=== PATIENT | male | born 1955 | race Caucasian/White ===

== ENCOUNTER 2017-06-06 10:04 | Inpatient (IN) | payer OTHER ==
[~2017-06-06] VITALS: Ht 190.5 cm; Wt 93.8 kg
[2017-06-06] VITALS (11 sets, daily range): BP systolic 139–163; BP diastolic 73–90; PULSE 68–78; RESP 14–20; TEMP 97.8–98.6; O2SAT 96–99
[2017-06-06] MEDS ORDERED: AMBI10TA PO (10:23)
[2017-06-06] MEDS ORDERED: HYDR-3533 PO (10:23)
[2017-06-06] MEDS ORDERED: ENAL10TA PO (10:23)
[2017-06-06] MEDS ORDERED: XANA1TAB2 PO (10:23)
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
[2017-06-06] MEDS ORDERED: MORPHINE SULFATE 4 MG/ML INJ IV PUSH ONE (13:45)
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
[2017-06-06] MEDS ORDERED: NALOXONE HCL 0.4 MG/ML AMP IV PRN (15:45)
[2017-06-06] MEDS ORDERED: LABETALOL HCL 100 MG/20 ML VIAL IV PRN (15:45)
[2017-06-06] MEDS ORDERED: ONDANSETRON HCL 4 MG/2 ML VIAL IV PRN (15:45)
[2017-06-06] MEDS ORDERED: HYDROmorphone HCL PF 1 MG/ML VIAL IV PRN (15:45)
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
[2017-06-06] MEDS: ACETAMINOPHEN/HYDROcodone 325 MG/5 MG TAB PO PRN ×2 (16:42→21:01)
[2017-06-06] MEDS: DOCUSATE SODIUM 100 MG CAP PO SCH ×2 (21:00→21:01)
[2017-06-07] VITALS (12 sets, daily range): BP systolic 104–150; BP diastolic 60–79; PULSE 68–75; RESP 11–16; TEMP 97.7–98.7; O2SAT 96–100
[2017-06-07] MEDS: ACETAMINOPHEN/HYDROcodone 325 MG/5 MG TAB PO PRN ×5 (00:17→20:20)
[2017-06-07 04:21] LABS: AUTOMATED NEUTROPHIL # 3.2 TH/MM3 (1.8-7.7); BASOPHIL % 0.7 % (0.0-2.0); EOSINOPHIL # 0.2 TH/MM3 (0-0.4); EOSINOPHIL % 3.5 % (0.0-4.0); HEMATOCRIT 39.2 % (39.0-51.0); HEMO FLAGS DIFF FINAL; LYMPH % 32.5 % (9.0-44.0); LYMPHOCYTE # 1.9 TH/MM3 (1.0-4.8); MEAN CELL VOLUME 89.7 FL (80.0-100.0); MEAN CORPUSCULAR HEMOGLOBIN 29.5 PG (27.0-34.0); MEAN CORPUSCULAR HGB CONC 32.8 % (32.0-36.0); MONO % 7.2 % (0.0-8.0); NEUT % 56.1 % (16.0-70.0); PLATELET COUNT 133 TH/MM3 (150-450); RED BLOOD COUNT 4.37 MIL/MM3 (4.50-5.90); WHITE BLOOD COUNT 5.8 TH/MM3 (4.0-11.0)
[2017-06-07 04:30] LABS: APTT (PATIENT) 28.2 SEC (24.3-30.1); PROTHROMBIN TIME - PATIENT 10.6 SEC (9.8-11.6)
[2017-06-07 05:01] LABS: BICARBONATE 26.6 MEQ/L (21.0-32.0); POTASSIUM 3.8 MEQ/L (3.5-5.1)
[2017-06-07] MEDS: PANTOPRAZOLE SODIUM 40 MG VIAL IVP SCH (08:20)
[2017-06-07] MEDS: DOCUSATE SODIUM 100 MG CAP PO SCH ×2 (08:20→20:20)
[2017-06-07] MEDS: ENALAPRIL MALEATE 10 MG TAB PO SCH (08:21)
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
--- NOTE | 2017-06-07 13:44 | EKG ---
Date Performed: 06/06/2017 Time Performed: 17:59:58 PTAGE: 62 years EKG: Sinus rhythm with 1st degree A-V block Poor R wave progression - probable normal variant Septal T wave changes ar e nonspecific Abnormal ECG NO PREVIOUS TRACING DOCTOR: Juve Coelho Interpretating Date/Time 06/07/2017 13:43:27
[2017-06-08] VITALS (12 sets, daily range): BP systolic 118–146; BP diastolic 64–77; PULSE 68–92; RESP 12–20; TEMP 97.8–98.6; O2SAT 96–100
[2017-06-08] MEDS: ACETAMINOPHEN/HYDROcodone 325 MG/5 MG TAB PO PRN ×5 (00:27→19:38)
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
[2017-06-08] MEDS: PANTOPRAZOLE SODIUM 40 MG VIAL IVP SCH (09:23)
[2017-06-08] MEDS: DOCUSATE SODIUM 100 MG CAP PO SCH ×2 (09:23→19:38)
[2017-06-08] MEDS: ENALAPRIL MALEATE 10 MG TAB PO SCH (09:24)
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
[2017-06-09] MEDS: ACETAMINOPHEN/HYDROcodone 325 MG/5 MG TAB PO PRN ×3 (00:45→09:35)
[2017-06-09 01:47] VITALS: BP 139/79; PULSE 70; RESP 20; TEMP 96.5; O2SAT 97
[2017-06-09 06:32] VITALS: BP 139/83; PULSE 66; RESP 20; TEMP 97.5; O2SAT 99
[2017-06-09 08:20] VITALS: BP 138/81; PULSE 68; RESP 20; TEMP 96.9; O2SAT 97
[2017-06-09] MEDS: DOCUSATE SODIUM 100 MG CAP PO SCH (09:35)
[2017-06-09] MEDS: ENALAPRIL MALEATE 10 MG TAB PO SCH (09:36)
[2017-06-09] MEDS: PANTOPRAZOLE SODIUM 40 MG VIAL IVP SCH (09:36)
[2017-06-09] MEDS ORDERED: HYDR-3533 PO (11:35)
--- NOTE | 2017-06-09 11:36 | HHI.DCPOC ---
Discharge Care Plan Diagnosis: (1) Subdural hematoma Your Health Problems Are: Difficulty with ADL Exercise Tolerance Goals to Promote Your Health * To prevent worsening of your condition and complications * To maintain your health at the optimal level Directions to Meet Your Goals Take your medications as prescribed Follow your dietary instruction Follow activity as directed Keep your appointments as scheduled Take your immunizations and boosters as scheduled If your symptoms worsen call your PCP, if no PCP go to Urgent Care Center or Emergency Room Smoking is Dangerous to Your Health. Avoid second hand smoke Call the 24-hour hour crisis hotline for domestic abuse at Tobias Vanegas MD Jun 09, 2017 11:36
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
[2017-06-09 12:21] VITALS: BP 139/72; PULSE 78; RESP 20; TEMP 96.9; O2SAT 98
== END 2017-06-09 13:40 | disposition home or self-care (01) | DRG 87 ==
LOC: NEPC 10:04 → NEDA 11:49 → N03B 17:39 → N05A 06-09 00:19
PROVIDERS: ADMIT Neurological Surgery; ATTEND Neurological Surgery
DX: S06.5X0A Traumatic subdural hemorrhage without loss of consciousness, initial encounter (principal); S06.6X0A Traumatic subarachnoid hemorrhage without loss of consciousness, initial encounter; I10 Essential (primary) hypertension; F41.9 Anxiety disorder, unspecified; G89.29 Other chronic pain; M54.2 Cervicalgia; E78.00 Pure hypercholesterolemia, unspecified; S00.11XA Contusion of right eyelid and periocular area, initial encounter; M19.90 Unspecified osteoarthritis, unspecified site; R40.2410 Glasgow coma scale score 13-15, unspecified time; F17.210 Nicotine dependence, cigarettes, uncomplicated; V48.5XXA Car driver injured in noncollision transport accident in traffic accident, initial encounter
CPT/HCPCS: 70450; 72125; 80048; 85025; 85610; 85730; 93005; 94150; C9113; J2270